=== PATIENT | male | born 1970 | race Caucasian/White ===

== ENCOUNTER 2017-05-12 09:48 | Emergency (ER) | payer MEDICAID ==
[~2017-05-12] VITALS: Ht 175.3 cm; Wt 106.8 kg
[~2017-05-12 09:48] MED LIST: ADVIL200 MG PO; NORCO1 TA1 PO; ZOFRAN8 MG PO
[2017-05-12 12:32] LABS: BASOPHIL % 0.3 % (0-2); RED CELL DISTRIBUTION WIDTH 13.9 % (11.5-14.5)
[2017-05-12 12:35] LABS: PLATELET COUNT 104 x10^3mcL (130-400)
[2017-05-12 12:38] LABS: CALCIUM 7.9 mg/dL (8.5-10.1); CHLORIDE SERUM 109 mmol/L (98-107); CREATININE SERUM 0.8 mg/dL (0.7-1.3); GFR1 > 60 mL/min; GLUCOSE SERUM 119 mg/dL (74-106); POTASSIUM SERUM 4.2 mmol/L (3.5-5.1); SODIUM SERUM 140 mmol/L (136-145)
[2017-05-12 12:43] LABS: ALKALINE PHOSPHATASE 151 U/L (46-116); ALT/SGPT 47 U/L (16-63); AST/SGOT 39 U/L (15-37); TOTAL PROTEIN, SERUM 7.4 g/dL (6.4-8.2)
[2017-05-12 13:23] VITALS: BP 155/68
== END 2017-05-12 14:06 | disposition home or self-care (01) ==
LOC: ED 09:48
PROVIDERS: Emergency Medicine
DX: R11.10 Vomiting, unspecified (principal); R19.7 Diarrhea, unspecified; K92.2 Gastrointestinal hemorrhage, unspecified; Z87.19 Personal history of other diseases of the digestive system
CPT/HCPCS: C9113; J2405; J7030